=== PATIENT | female | born 1970 | race Caucasian/White ===

== ENCOUNTER 2017-04-24 10:48 | Emergency (ER) | payer MEDICAID ==
[2017-04-24 10:54] VITALS: RESP 18
--- NOTE | 2017-04-24 11:46 | C.PDOC ---
History Of Present Illness 46 y/o F c no PMHx p/w chest pain x years. Patient with daughter in ED who is also patient. Mother states that she has had intermittent chest pressure, dyspnea, and pounding palpitations for years. She did see a physician in the office for it before and was told it was due to stress and states she did not have any testing performed at that time. 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 Denies any current symptoms. She does report current cold like symptoms but states that is not why she came today. Time Seen by Provider: 04/24/17 11:18 Chief Complaint (Nursing): Cough, Cold, Congestion Past Medical History Vital Signs: Last Vital Signs Temp 97.7 F 04/24/17 10:52 Pulse 76 04/24/17 10:52 Resp 18 04/24/17 10:52 BP 131/85 04/24/17 10:52 Pulse Ox 100 04/24/17 12:53 Family History: States: No Known Family Hx - Social History Hx Alcohol Use: No Hx Substance Use: No - Immunization History Hx Tetanus Toxoid Vaccination: No Hx Influenza Vaccination: No Hx Pneumococcal Vaccination: No Review Of Systems Except As Marked, All Systems Reviewed And Found Negative. Constitutional: Negative for: Fever Gastrointestinal: Negative for: Vomiting Physical Exam - Physical Exam Additional Physical Exam Comments: Appears: Well Appearing, Non-toxic Skin: Normal Color Head: Atraumatic. Normacephalic. Eye(s): bilateral: EOMI Oral: Moist mucosa. Neck: Supple Chest: No Deformity, No Tenderness Respiratory: No Accessory Muscle Use Gastrointestinal/Abdominal: Soft. No Tenderness. No guarding. No rebound. Back: No Vertebral Tenderness Extremity: Full ROM. No tenderness. No swelling. Cap Refill <2. Pulses: Normal. Neurological/Psych: Alert. No focal deficit. Gait: Steady. ED Course And Treatment - Laboratory Results Result Diagrams: 04/24/17 12:13 04/24/17 12:13 O2 Sat by Pulse Oximetry: 100 (RA) Pulse Ox Interpretation: Normal Medical Decision Making Medical Decision Making: Will evaluate further with enzymes, CXR, EKG. Informed patient that this evaluation is for emergent purposes but will not rule out cardiac disease and that primary care is still required. CXR - IMPRESSION: No active disease. EKG NSR 70 bpm, no ST/T wave changes. Disposition - Disposition Disposition: HOME/ ROUTINE Disposition Time: 13:02 Condition: STABLE Instructions: Chest Pain (ED) Forms: [facility] (Bel[place]ian) - POA Core Measure Indicators: Chest Pain - Clinical Impression Clinical Impression: Chest pain
[2017-04-24 12:17] LABS: BASO % 0.6 % (0.0-2.0); EOS # 0.1 K/uL (0.0-0.7); EOS % 2.2 % (0.0-4.0); HEMATOCRIT 35.2 % (34.0-47.0); LYMPH % 28.5 % (20.0-40.0); MEAN CELL VOLUME 82.1 fL (81.0-99.0); MEAN CORPUSCULAR HGB CONC 32.9 g/dL (33.0-37.0); MEAN PLATELET VOLUME 9.1 fL (7.2-11.7); MONO # 0.4 K/uL (0.0-0.8); MONO % 5.5 % (0.0-10.0); RED CELL DISTRIBUTION WIDTH 15.8 % (11.5-14.5); WHITE BLOOD COUNT 6.8 K/uL (4.8-10.8)
[2017-04-24 12:30] LABS: CHLORIDE 101 mmol/L (98-107); POTASSIUM 3.5 mmol/L (3.6-5.2); SODIUM 137 mmol/L (132-148)
[2017-04-24 12:32] LABS: AST/SGOT 29 U/L (14-36); BILIRUBIN,TOTAL 0.4 mg/dL (0.2-1.3); CARBON DIOXIDE 27 mmol/L (22-30); GFR AFRICAN-AMERICAN > 60
[2017-04-24 12:33] LABS: ALB/GLOB RATIO 0.9 (1.0-2.1); ALKALINE PHOSPHATASE 82 U/L (38-126); ALT/SGPT 43 U/L (9-52); BLOOD UREA NITROGEN 9 mg/dL (7-17); CALCIUM 9.3 mg/dl (8.6-10.4); GLUCOSE,RANDOM 143 mg/dL (65-105); TOTAL PROTEIN 8.9 g/dL (6.3-8.3)
--- NOTE | 2017-04-24 12:37 | RAD ---
HISTORY: chest pain COMPARISON: No prior. TECHNIQUE: Chest PA and lateral FINDINGS: LUNGS: No active pulmonary disease. PLEURA: No significant pleural effusion identified. No pneumothorax apparent. CARDIOVASCULAR: Normal. OSSEOUS STRUCTURES: No significant abnormalities. VISUALIZED UPPER ABDOMEN: Normal. OTHER FINDINGS: None. IMPRESSION: No active disease.
[2017-04-24 13:14] VITALS: BP 119/69; PULSE 72; TEMP 98.1; O2SAT 99
--- NOTE | 2017-04-27 12:43 | CARD ---
APPROVED REPORT EKG Measurement Heart [id number] <Conclusion> Normal sinus rhythm Voltage criteria for left ventricular hypertrophy Abnormal ECG
== END 2017-04-24 13:20 | disposition home or self-care (01) ==
LOC: C.ER 10:48
DX: R07.9 Chest pain, unspecified (principal)